=== PATIENT | female | born 1985 ===

== ENCOUNTER 2019-08-28 20:41 | Inpatient (IN) | payer MEDICAID, OTHER ==
[2019-08-28] MEDS ORDERED: LACTATED RINGERS 2,000 ML ONE (21:37)
[2019-08-28] MEDS ORDERED: METOCLOPRAMIDE 10 MG/2 ML INJ IV ONE (21:59)
[2019-08-28] MEDS ORDERED: BICITRA ORAL LIQD 30ML PO ONE (21:59)
[2019-08-28] MEDS ORDERED: FAMOTIDINE 20 MG/2 ML INJ IV ONE (21:59)
[2019-08-28] MEDS ORDERED: OXYTOCIN 20 UNIT/1000ML DRIP 20 UNITS/1,000 ML BAG IV SCH (22:00)
[2019-08-28] MEDS ORDERED: LACTATED RINGERS 1,000 ML IV SCH (22:00)
[2019-08-28] MEDS ORDERED: ceFAZolin/Water 2 GM/20 ML 2 GM/20 ML SYRINGE IV NR (22:00)
[2019-08-28 22:20] LABS: Hemoglobin 12.7 gm/dl (10.1-14.3); Mean Corpuscular HGB Conc 34 % (30-34); Mean Corpuscular Volume 93 fl (79-97); Platelet Count 157 K/mm3 (140-440); Red Blood Count 3.96 M/mm3 (3.65-5.03)
--- NOTE | 2019-08-28 22:33 | History and Physical Report ---
History of Present Illness Date of examination: 08/28/19 Date of admission: 08/28/19 20:41 Chief complaint: SROM History of present illness: Pt is a 34yo HF EDC 09/05/19; EGA 38 6/7 presents to [facility] L&D complaining of SROM clear fluid @ 10am followed by vaginal spotting. She received care at [facility] since 11 weeks and was scheduled for a Repeat C Section tomorrow, but will proceed with delivery tonight. records are available and GBS is Negative. Past History Past Medical History: no pertinent history Past Surgical History: section (x2) Social history: no significant social history, - Obstetrical History Expected Date of Delivery: 09/05/19 Actual Gestation: 38 Week(s) 6 Day(s) : 3 Medications and Allergies Allergies Allergy/AdvReac Type Severity Reaction Status Date / Time No Known Allergies Allergy Verified 08/07/15 23:58 Home Medications Medication Instructions Recorded Confirmed Last Taken Type Vit-Fe Fumar-FA [ 1 tab PO DAILY 08/28/19 08/28/19 08/28/19 History Vitamin] Active Meds: Active Medications Oxytocin/Sodium Chloride (Pitocin/Ns 20 Unit/1000ml Drip) 20 units in 1,000 mls @ 0 mls/hr IV TITR EMERALD Cefazolin Sodium (Ancef/Sterile Water 2 Gm/20 Ml) 2 gm in 20 mls @ 80 mls/hr IV PREOP NR; Protocol Stop: 08/29/19 21:59 Lactated Ringer's (Lactated Ringers) 1,000 mls @ 2,250 mls/hr IV PREOP EMERALD Stop: 08/29/19 22:27 Review of Systems All systems: negative - Vital Signs Vital signs: Vital Signs Pulse BP 70 132/79 08/28/19 21:52 08/28/19 21:52 Temp Pulse Resp BP Pulse Ox 98.0 F 70 18 132/79 08/28/19 22:00 08/28/19 21:52 08/28/19 22:00 08/28/19 21:52 - Physical Exam Breasts: Positive: deferred Cardiovascular: Regular rate Abdomen: Positive: normal appearance, soft Vagina: Positive: normal moisture Uterus: Positive: enlarged Extremities: Positive: normal - Obstetrical FHR: category 1 Uterine Contraction Monitor Mode: External Cervical Dilatation: 1 (per nurse) Cervical Effacement Percentage: 80 (per nurse) station: -3 Uterine Contraction Pattern: Irregular Uterine Tone Measurement Phase: Contraction Uterine Contraction Intensity: Moderate Results Result Diagrams: 08/28/19 21:44 All other labs normal. Assessment and Plan - Patient Problems (1) 38 weeks gestation of Onset Date: 08/28/19 Current Visit: Yes Status: Acute Plan to address problem: A: IUP @ 38 6/7 weeks in labor Previous C Section x 2 P: Admit to L&D for Repeat C Section. (2) Previous section complicating Onset Date: 08/28/19 Current Visit: Yes Status: Acute
[2019-08-28] MEDS ORDERED: HYDROmorphone 1 MG/1 ML INJ IV PRN (23:08)
[2019-08-28] MEDS ORDERED: ONDANSETRON 4 MG/2 ML INJ IV PRN (23:08)
--- NOTE | 2019-08-28 23:08 | Anesthesia Day of Surgery ---
Anesthesia Day of Surgery - Day of Surgery Patient Examined: Yes Patient H&P Reviewed: Yes Patient is NPO: Yes Beta Blockers: No Cardiac Clearance: No Pulmonary Clearance: No Saeed's Test: N/A
--- NOTE | 2019-08-28 23:08 | Anesthesia Consultation ---
Anesthesia Consult and Med Hx Date of service: 08/28/19 - Airway Anesthetic Teeth Evaluation: Good ROM Head & Neck: Adequate Mental/Hyoid Distance: Adequate Mallampati Class: Class III Intubation Access Assessment: Probably Good - Pulmonary Exam CTA: Yes - Cardiac Exam Cardiac Exam: RRR - Pre-Operative Health Status ASA Pre-Surgery Classification: ASA2, Emergency Proposed Anesthetic Plan: Spinal - Pre-Anesthesia Comment Pre-Anesthesia Comments: PSH: CSectionx2. No Anesthesia complications - Pulmonary Hx Smoking: No Hx Asthma: No Hx Respiratory Symptoms: No SOB: No COPD: No Home Oxygen Therapy: No Hx Pneumonia: No Hx Sleep Apnea: No - Cardiovascular System Hx Hypertension: No Hx Coronary Artery Disease: No Hx Heart Attack/AMI: No Hx Angina: No Hx Percutaneous Transluminal Coronary Angioplasty (PTCA): No Hx Cardia Arrhythmia: No Hx Pacemaker: No Hx Internal Defibrillator: No Hx Valvular Heart Disease: No Hx Heart Murmur: No Hx Peripheral Vascular Disease: No - Central Nervous System Hx Neuromuscular Disorder: No Hx Seizures: No CVA: No Hx Back Pain: No Hx Psychiatric Problems: No - Gastrointestinal Hx Ulcer: No Hx Gastroesophageal Reflux Disease: Yes - Endocrine Hx Renal Disease: No Hx End Stage Renal Disease: No Hx Cirrhosis: No Hx Liver Disease: No Hx Insulin Dependent Diabetes: No Hx Non-Insulin Dependent Diabetes: No Hx Hypothyroidism: No Hx Hyperthyroidism: No - Hematic Hx Anemia: No Hx Sickle Cell Disease: No - Other Systems Hx Alcohol Use: No Hx Substance Use: No Hx Cancer: No Hx Obesity: Yes (BMI 35)
[2019-08-28] MEDS ORDERED: DEXMEDETOMIDINE 200 MCG/2 ML VIAL IV ONE (23:16)
[2019-08-28] MEDS ORDERED: KETOROLAC 30 MG/1 ML INJ ONE (23:17)
[2019-08-29] MEDS ORDERED: SODIUM CHLORIDE 0.9% IRR 1,500 ML BOTTLE IR ONE (00:30)
[2019-08-29] MEDS ORDERED: WATER FOR IRRIG STERILE 1,500 ML BOTTLE IR ONE (00:30)
--- NOTE | 2019-08-29 01:26 | Operative Report ---
Operative Report Operative Report: Date of procedure: 08/29/2019 Pre-operative diagnosis: 1. Intrauterine at 38 6/7 weeks 2. Previ ous C Section x2 Post-operative diagnosis: Same Procedure name(s): Repeat low transverse section Surgeon: Dominick Doss MD Route Process Administrator: None Anesthesia: Spinal anesthesia by Marianela Fabian CRNA EBL: 600 mL's Findings: A 3969 gm female Apgars 8 at 1 minute and 9 at 5 minutes. Clear amniotic fluid. Normal uterus with normal tubes and ovaries bilaterally. Procedure: After the patient was prepped and draped in usual sterile fashion, and after a satisfactory level of spinal anesthesia was obtained, the skin knife was used to make a transverse skin incision through the previous skin scars. The incision was excised down to layer of the fascia, which was nicked in the midline and extended laterally using the Bovie cautery. The rectus muscles were dissected off the rectus fascia both superiorly and inferiorly. The rectus bellies in the midline, and the peritoneum was entered under direct visualization. The peritoneal incision was extended superiorly and inferiorly. The uterus was scored in a curvilinear linear fashion, entered in the midline revealing clear amniotic fluid. The 's head was delivered onto the surgical field with the aid of a vacuum, and the oropharynx and nasopharynx were bulb suctioned. The rest of the infant's body was delivered, cord was doubly clamped and cut and the was handed to the waiting respiratory team. Cord blood was then obtained. The placenta was manually removed from the uterus and the uterus removed from its normal anatomical position. After gentle uterine lavage, the incision was inspected and found to be without extensions. It was then closed in 2 layers using 0 Vicryl suture in a running interlocking fashion, the second layer imbricating the first. After good hemostasis was achieved, copious amounts or irrigation was performed, and the gutters were suctioned free of blood and blood clots. The Tisseal sealant was sprayed across the uterine incision and excellent hemostasis was assured. The uterus was then returned to its normal anatomical position, and after excellent hemostasis assured, the peritoneum was re-approximated using 3-0 Vicryl suture in a running interlocking fashion, and then the rectus muscles were re-approximated using 3-0 Vicryl suture in a [id number] configuration. The fascia was then re-approximated using 0 Vicryl suture in running interlocking fashion. The subcutaneous layer was made hemostatic using Bovie cautery and re-approximated using 3-0 vicyl suture, then the skin edges re-approximated using 4-0 Vicryl suture in a sub- cuticular fashion. Patient tolerated the procedure well was transported to recovery in stable condition.
[2019-08-29] MEDS ORDERED: SIMETHICONE 80 MG CHEW TAB PO PRN (01:31)
[2019-08-29] MEDS ORDERED: LANOLIN/ZINC/DIMETHICONE (LANSINOH) 7 GM TP PRN (01:31)
[2019-08-29] MEDS ORDERED: MAGNESIUM HYDROXIDE (MOM) ORAL LIQD UDC PO PRN (01:31)
[2019-08-29] MEDS ORDERED: ACETAMINOPHEN 325 MG TAB PO PRN (01:31)
[2019-08-29] MEDS ORDERED: WITCH HAZEL/ GLYCERIN PAD TP PRN (01:31)
[2019-08-29] MEDS ORDERED: NALOXONE 0.4 MG/1 ML INJ IV PRN (01:31)
[2019-08-29] MEDS ORDERED: SENNOSIDES 8.6 MG TAB PO PRN (01:31)
--- NOTE | 2019-08-29 01:45 | Post Anesthesia Evaluation ---
- Post Anesthesia Evaluation Patient Participated: Yes Airway Patent: Yes Stable Respiratory Function: Yes Nausea/Vomiting: No Temp > 96.8F: Yes Pain Manageable: Yes Adequeate Hydration: Yes Anesthesia Complications: No Block Receding Appropriately: Yes Patient on Ventilator: No
[2019-08-29] MEDS ORDERED: D5W/LACTATED RINGERS 1,000 ML IV SCH (02:00)
[2019-08-29] MEDS ORDERED: OXYTOCIN 20 UNIT/1000ML DRIP 20 UNITS/1,000 ML BAG IV SCH (02:00)
[2019-08-29] MEDS: KETOROLAC 30 MG/1 ML INJ IV PRN ×2 (06:26→13:37)
[2019-08-29] MEDS: ceFAZolin/NS 1 GM/50 ML 1 GM/50 ML BAG IV SCH ×2 (07:55→16:33)
[2019-08-29] MEDS: HYDROmorphone 1 MG/1 ML INJ IV PRN ×2 (07:55→16:32)
[2019-08-29] MEDS: HYDROcodone/ACETAMINOPHEN 5-325 MG TAB PO PRN (10:29)
[2019-08-29] MEDS: PRENATAL VIT27-FE FUMARATE-FOLIC ACID VIT TAB PO SCH (10:30)
[2019-08-29] MEDS: FERROUS SULFATE 325 MG TAB PO SCH (10:30)
--- NOTE | 2019-08-29 12:22 | Progress Note ---
Assessment and Plan - Patient Problems (1) 38 weeks gestation of Onset Date: 08/28/19 Current Visit: Yes Status: Resolved (2) Previous section complicating Onset Date: 08/28/19 Current Visit: Yes Status: Chronic (3) Status post repeat low transverse section Onset Date: 08/29/19 Current Visit: No Status: Resolved Plan to address problem: A: S/P Repeat C Section - POD #1 Doing well Asymptomatic anemia - stable P: Continue RPOC Anticipate discharge in 24-48hrs (4) Acute blood loss anemia Onset Date: 08/29/19 Current Visit: Yes Status: Resolved Subjective - Subjective Date of service: 08/29/19 Principal diagnosis: s/p Repeat C Section - POD #1 Interval history: Pt is feeling well without complaints. Bleeding improved. Patient reports: appetite normal, voiding normally, pain well controlled, no dizzy ambulation, no flatus, no ambulating normally, no nauseated [place]: doing well Objective - Vital Signs Latest vital signs: Vital Signs Temp Pulse Resp BP Pulse Ox 08/29/19 08:14 98.2 F 65 20 119/72 95 08/29/19 06:26 20 08/29/19 03:46 60 100 08/29/19 03:45 98.0 F 60 20 115/62 99 08/29/19 02:51 98.3 F 62 16 117/54 99 08/29/19 02:40 57 L 19 103/51 98 08/29/19 02:25 59 L 18 120/78 100 08/29/19 02:10 98.9 F 57 L 21 122/74 99 08/29/19 01:55 56 L 18 112/68 99 08/29/19 01:51 59 L 21 113/67 99 08/29/19 01:44 98.6 F 68 21 99/55 100 08/28/19 23:56 74 138/81 08/28/19 22:00 98.0 F 18 08/28/19 21:52 70 132/79 Intake and Output 08/28/19 08/29/19 08/29/19 22:59 06:59 14:59 Intake Total 2300 170 Output Total 260 200 Balance 2039 Intake: IV 2300 50 ANCEF/NS 1 GM/50 ML 1 gm 50 In 50 ml @ 100 mls/hr IV Q8H EMERALD Rx#:[id number] Oral 120 Output: Urine 260 200 Indwelling Catheter 200 Uretheral (Harmon) 30 Other: Total, Intake Amount 120 Total, Output Amount 200 Weight 81.647 kg Estimated Blood Loss 600 - Exam Breasts: Present: deferred Cardiovascular: Present: Regular rate Abdomen: Present: normal appearance, soft Uterus: Present: normal, firm, fundal height below umbilicus Extremities: Present: normal Incision: Present: normal, dry, intact - Labs Labs: Laboratory Tests 08/28/19 08/28/19 08/28/19 21:44 21:44 21:44 WBC 8.1 RBC 3.96 Hgb 12.7 Hct 37.0 MCV 93 MCH 32 MCHC 34 RDW 15.0 Plt Count 157 RPR Nonreactive Blood Type O POSITIVE Antibody Screen Negative 08/29/19 13:06 WBC RBC Hgb 10.6 Hct 30.6 D MCV MCH MCHC RDW Plt Count RPR Blood Type Antibody Screen
[2019-08-29 13:36] LABS: Hematocrit 30.6 % (30.3-42.9); Hemoglobin 10.6 gm/dl (10.1-14.3)
[2019-08-29] MEDS: oxyCODONE /ACETAMINOPHEN 5-325MG TAB PO PRN (21:41)
[2019-08-30] MEDS: IBUPROFEN 800 MG TAB PO PRN (03:09)
[2019-08-30] MEDS: oxyCODONE /ACETAMINOPHEN 5-325MG TAB PO PRN ×3 (05:27→22:23)
[2019-08-30] MEDS ORDERED: MEASLES, MUMPS & RUBELLA 12,500 UNIT/0.5 ML VACCINE SUB-Q ONE (06:00)
[2019-08-30] MEDS ORDERED: TETANUS,DIPH,PERTUSS(ACELL) VACCINE 0.5 ML SYRINGE IM ONE (06:00)
--- NOTE | 2019-08-30 10:27 | Progress Note ---
Assessment and Plan - Patient Problems (1) Status post repeat low transverse section Onset Date: 08/29/19 Current Visit: No Status: Resolved Plan to address problem: Continue routine PP orders Keep incision dry and intact Anticipate d/c home in 48 hrs (2) Anemia Current Visit: Yes Status: Acute Qualifiers: Anemia type: other cause Other causes of anemia: acute posthemorrhagic Qualified Code(s): D62 - Acute posthemorrhagic anemia Plan to address problem: Asymptomatic Continue daily oral iron supplementation Increase iron rich foods into diet Subjective - Subjective Date of service: 08/30/19 Principal diagnosis: s/p Repeat C Section - POD #1 Interval history: See admission H & P; OB operative note and PP progress notes Patient reports: appetite normal, voiding normally, pain well controlled (with medications), flatus, ambulating normally, no bowel movement : doing well, bottle feeding (and ) Objective - Vital Signs Latest vital signs: Vital Signs Temp Pulse Resp BP BP Pulse Ox 08/30/19 07:50 97.4 F L 58 L 18 129/79 08/30/19 05:27 20 08/30/19 03:09 20 08/30/19 01:45 98.2 F 63 18 118/78 97 08/29/19 21:42 98.0 F 68 18 125/77 92 08/29/19 21:41 20 08/29/19 15:52 98.0 F 63 16 129/79 96 08/29/19 11:58 99.5 F 60 20 125/75 96 Intake and Output 08/29/19 08/30/19 08/30/19 23:59 07:59 15:59 Intake Total 530 600 Output Total 1300 Balance -770 600 Intake: IV 50 ANCEF/NS 1 GM/50 ML 1 gm 50 In 50 ml @ 100 mls/hr IV Q8H EMERALD Rx#:[id number] Oral 480 600 Output: Urine 1300 Void 1300 Other: Total, Intake Amount 240 480 Total, Output Amount 1000 # Voids Void 2 1 - Exam Breasts: Present: normal Cardiovascular: Present: Regular rate Lungs: Present: Normal air movement Abdomen: Present: soft, tenderness Uterus: Present: firm, fundal height below umbilicus (U-1) Extremities: Present: normal Deep Tendon Reflex Grade: Normal +2 Incision: Present: dry, intact, dressed
[2019-08-30] MEDS: HYDROcodone/ACETAMINOPHEN 5-325 MG TAB PO PRN (10:36)
[2019-08-30] MEDS: FERROUS SULFATE 325 MG TAB PO SCH (10:36)
[2019-08-30] MEDS: PRENATAL VIT27-FE FUMARATE-FOLIC ACID VIT TAB PO SCH (10:36)
[2019-08-31] MEDS: IBUPROFEN 800 MG TAB PO PRN ×3 (00:45→18:30)
[2019-08-31] MEDS: FERROUS SULFATE 325 MG TAB PO SCH (10:37)
[2019-08-31] MEDS: PRENATAL VIT27-FE FUMARATE-FOLIC ACID VIT TAB PO SCH (10:37)
--- NOTE | 2019-08-31 17:11 | Discharge Summary ---
Providers - Providers Date of Admission: 08/28/19 20:41 Date of discharge: 08/31/19 Attending physician: MEGA AUSTIN Primary care physician: MEGA AUSTIN Hospitalization Reason for admission: section Delivery: Procedure: section, repeat low transverse Condition at discharge: Good Disposition: DC-01 TO HOME OR SELFCARE Plan - Discharge Medications Prescriptions: Ferrous Sulfate [Feosol 325 MG tab] 325 mg PO BID #60 tablet Ibuprofen [Motrin] 800 mg PO Q8HR PRN #30 tablet PRN Reason: Pain, Mild (1-3) HYDROcodone/APAP 5-325 [Squires 5/325] 1 each PO Q6HR PRN #30 tablet PRN Reason: Pain Vit-Fe Fumar-FA [ Vitamin] 1 tab PO QDAY #30 tablet - Provider Discharge Summary Activity: routine, no sex for 6 weeks, no heavy lifting 4 weeks, no strenuous exercise Diet: routine Instructions: routine Additional instructions: [] Smoking cessation referral if applicable(refer to patient education folder for contact #) [] Refer to [facility]'s [facility] Booklet Call your doctor immediately for: * Fever > 100.5 * Heavy vaginal bleeding ( >1 pad per hour) * Severe persistent headache * Shortness of breath * Reddened, hot, painful area to leg or breast * Drainage or odor from incision. * Keep incision clean and dry at all times and follow doctor's instructions regarding bathing/showering - Follow up plan Follow up: MEGA AUSTIN MD [Primary Care Provider] - 7 Days
[2019-08-31 18:50] VITALS: BP 125/69
== END 2019-08-31 19:00 | disposition home or self-care (01) | DRG 787 ==
LOC: APU 20:41 → OB 08-29 04:34
PROVIDERS: ADMIT Obstetrics & Gynecology; ATTEND Obstetrics & Gynecology
PROC: 10D00Z1 Extraction of Products of Conception, Low, Open Approach (ICD-10-PCS; principal; 2019-08-29)
PROC: 3E0234Z Introduction of Serum, Toxoid and Vaccine into Muscle, Percutaneous Approach (ICD-10-PCS; 2019-08-30)
DX: O34.211 Maternal care for low transverse scar from previous cesarean delivery (principal); D62 Acute posthemorrhagic anemia; O99.214 Obesity complicating childbirth; O99.62 Diseases of the digestive system complicating childbirth; K21.9 Gastro-esophageal reflux disease without esophagitis; O99.02 Anemia complicating childbirth; Z3A.38 38 weeks gestation of pregnancy; Z37.0 Single live birth; Z23 Encounter for immunization
CPT/HCPCS: 36415; 85014; 85018; 85027; 86592; 86850; 86900; 86901; G0378; C9250; J0690; J1170; J1885; J2405; J2590; J2765; J3490; J7120; J7121